=== PATIENT | male | born 1950 | race Hispanic/Latino ===

== ENCOUNTER 2019-05-23 08:45 | Day surgery (SDC) | payer OTHER ==
[~2019-05-23] VITALS: Ht 175.3 cm; Wt 93.0 kg
[~2019-05-23 08:45] MED LIST: CALC-322 PO; CETI10TA86 PO; CHLO25TA3 PO; CHOL200059 PO; CLON0.5T4 PO; DOCU-132 PO; DULO20CA18 PO; EMPA25TA PO; ENAL20TA PO; FINA5TAB41 PO; FOLI20CA PO; GABA-531 PO; MAGN200T4 PO; OMEP20CA12 PO; POTA-79 PO; PRAZ2CAP2 PO; SODIUM CHLORIDE 0.9% 1000ML 1,000 ML IV ONE; TAMS-1 PO; VITA1CAP85 PO; vitamin b1 PO
[2019-05-23 10:23] VITALS: BP 91/54
[2019-05-23] MEDS ORDERED: PHENYLEPHRINE HCL 10 MG/ML 1ML VIAL IV ONE (10:26)
[2019-05-23 10:28] VITALS: BP 86/61
[2019-05-23 10:32] VITALS: BP 109/46
[2019-05-23 10:37] VITALS: BP 115/41
[2019-05-23 10:42] VITALS: BP 135/72
[2019-05-23 10:50] VITALS: BP 141/69
== END 2019-05-23 10:55 | disposition home or self-care (01) ==
LOC: ENDO 08:45 → DAH 08:45 → ENDO 10:55
PROVIDERS: ATTEND Internal Medicine Gastroenterology
DX: D64.9 Anemia, unspecified (principal); D12.2 Benign neoplasm of ascending colon; D12.3 Benign neoplasm of transverse colon; K31.7 Polyp of stomach and duodenum; K57.30 Diverticulosis of large intestine without perforation or abscess without bleeding; K21.0 Gastro-esophageal reflux disease with esophagitis; K22.70 Barrett's esophagus without dysplasia; E11.9 Type 2 diabetes mellitus without complications; K59.04 Chronic idiopathic constipation; K31.89 Other diseases of stomach and duodenum; I10 Essential (primary) hypertension; Z86.010 Personal history of colon polyps; Z79.899 Other long term (current) drug therapy
CPT/HCPCS: 43239; 45380; 82948 ×2; 88305; A4215; A4221; A4222; A4223; A4606; A4620; A4663; J2370; J7030